=== PATIENT | female | born 1935 | race Caucasian/White ===

== ENCOUNTER 2017-03-15 06:34 | Emergency (ER) | payer OTHER ==
[~2017-03-15] VITALS: Ht 154.9 cm; Wt 75.4 kg
[~2017-03-15 06:34] MED LIST: ACID CONTROL150 MG PO; ATENOLOL50 MG PO; ATORVASTATIN CA80 MG PO; CALCIUM 500 +1 EAC5 PO; CALTRATE PLUS1 EACH PO; LOSARTAN POTASS50 MG PO; METOPROLOL TART50 MG PO; NORCO 5/3251 TABLET PO; OMEPRAZOLE20 M2 PO; OSTEO BI-FLEX1 EAC3 PO; XARELTO20 MG PO; ZYRTEC10 M3 PO
[2017-03-15 07:01] LABS: HEMATOCRIT 39.4 % (36.0-46.0); MCH 32.2 PG (29.0-34.0); MCHC 33.5 G/DL (30.0-36.0); MCV 96.1 FL (83-99); MEAN PLAT.VOLUME 10.7 uM^3 (9.5-12.4); PLATELET COUNT 167 K/uL (156-360); RBC DIS.WIDTH-CV 14.6 % (11.8-14.6); RBC DIS.WIDTH-SD 51.1 % (39-53); WHITE BLOOD COUNT 6.7 K/uL (4.1-10.2)
[2017-03-15 07:23] LABS: ANION GAP 9 MEQ/L (2-14); CHLORIDE 103 MEQ/L (99-109); POTASSIUM 3.4 MEQ/L (3.7-5.4); SAMPLE HEMOLYSIS CHECK 0; SAMPLE ICTERIC CHECK 0; SAMPLE LIPEMIA CHECK 0; SODIUM 138 MEQ/L (136-147)
[2017-03-15 07:29] LABS: ALKALINE PHOSPHATASE 88 IU/L (3-129); GFR ESTIMATE (CALCULATED) 51 mL/min/; GLUCOSE 134 mg/dL (70-99); UREA NITROGEN (BUN) 12 mg/dL (9-23)
[2017-03-15 07:39] LABS: LIPASE 22 U/L (1.0-51.0)
[2017-03-15 07:56] LABS: TROP-I INTERPRETATION NEGATIVE; TROPONIN-I 0.06 ng/mL (0.0-0.30)
[2017-03-15 08:13] LABS: ADD MIUA? YES; BILIRUBIN NEGATIVE; BLOOD SMALL; COLOR AMBER ((YELLOW)); GLUCOSE (STRIP) NEGATIVE; KETONES NEGATIVE; LEUKOCYTES LARGE; NITRITE NEGATIVE; PROTEIN (STRIP) 100; SPECIFIC GRAVITY 1.019 (1.000-1.030); UROBILINOGEN 0.2 MG/DL (0.2-1.0)
[2017-03-15 08:29] LABS: BACTERIA 1+ /HPF; EPITHELIAL CELLS 3+ /HPF; MUCUS 2+ /LPF; RED BLOOD CELLS 0-5 /HPF (0-5); UCUL ADDED? YES; WHITE BLOOD CELLS 15-20 /HPF (0-5)
[2017-03-15] MEDS ORDERED: CIPRO500 MG PO (08:54)
[2017-03-15 09:19] VITALS: BP 146/85
[2017-03-16] MEDS ORDERED: BENADRYL ALLERG25 MG PO (09:28)
== END 2017-03-15 09:23 | disposition home or self-care (01) ==
LOC: EME 06:34
PROVIDERS: Emergency Medicine
DX: N39.0 Urinary tract infection, site not specified (principal); I48.91 Unspecified atrial fibrillation; R06.02 Shortness of breath; R05 Cough; I10 Essential (primary) hypertension; E78.5 Hyperlipidemia, unspecified; Z79.01 Long term (current) use of anticoagulants
CPT/HCPCS: 70450; 71010; 80053; 81003; 83690; 83880; 84484; 85027; 87086 GA; 93005; 99281; 99284

== ENCOUNTER 2017-03-16 05:14 | Observation (INO) | payer OTHER ==
[~2017-03-16] VITALS: Ht 154.9 cm; Wt 75.3 kg
[~2017-03-16 05:14] MED LIST changes: +CIPRO500 MG PO
[2017-03-16 05:48] LABS: HEMATOCRIT 38.2 % (36.0-46.0); MCH 32.7 PG (29.0-34.0); MEAN PLAT.VOLUME 10.8 uM^3 (9.5-12.4); PLATELET COUNT 164 K/uL (156-360); RBC DIS.WIDTH-CV 14.8 % (11.8-14.6); RBC DIS.WIDTH-SD 51.1 % (39-53); RED BLOOD COUNT 3.98 M/uL (3.80-5.20); WHITE BLOOD COUNT 6.7 K/uL (4.1-10.2)
[2017-03-16 05:51] LABS: CHLORIDE 106 mEq/L (99-109); POTASSIUM 3.5 mEq/L (3.7-5.4); SODIUM 138 mEq/L (136-147)
[2017-03-16 05:53] LABS: GLUCOSE 126 mg/dL (70-99)
[2017-03-16 05:54] LABS: ANION GAP 9 MEQ/L (2-14)
[2017-03-16 05:56] LABS: GFR ESTIMATE (CALCULATED) 57 mL/min/
[2017-03-16 05:57] LABS: UREA NITROGEN (BUN) 15 mg/dL (9-23)
[2017-03-16 06:03] LABS: TROP-I INTERPRETATION NEGATIVE; TROPONIN-I 0.05 ng/mL (0.0-0.30)
[2017-03-16 08:23] LABS: ADD MIUA? YES; BILIRUBIN NEGATIVE; BLOOD NEGATIVE; COLOR YELLOW ((YELLOW)); GLUCOSE (STRIP) NEGATIVE; KETONES 5; LEUKOCYTES SMALL; NITRITE NEGATIVE; PROTEIN (STRIP) 30; SPECIFIC GRAVITY 1.021 (1.000-1.030); UROBILINOGEN 0.2 MG/DL (0.2-1.0)
[2017-03-16 08:34] LABS: BACTERIA RARE /HPF; EPITHELIAL CELLS 2+ /HPF; HYALINE CASTS 0-5 /LPF; MUCUS TRACE /LPF; RED BLOOD CELLS 0-5 /HPF (0-5); UCUL ADDED? NO; UNCLASSIFIED CASTS 0-5 /LPF; WHITE BLOOD CELLS 0-5 /HPF (0-5)
[2017-03-16] MEDS ORDERED: BENADRYL ALLERG25 MG PO (09:28)
[2017-03-16 11:14] VITALS: BP 134/70
[2017-03-16 12:02] LABS: TROP-I INTERPRETATION NEGATIVE; TROPONIN-I 0.06 ng/mL (0.0-0.30)
== END 2017-03-16 14:07 | disposition home or self-care (01) ==
LOC: EME 05:14 → EDOF 09:21 → ENRESERV 09:24 → 5WEST 11:01
PROVIDERS: Emergency Medicine; Nurse Practitioner Family
DX: R07.9 Chest pain, unspecified (principal); I48.91 Unspecified atrial fibrillation; K21.9 Gastro-esophageal reflux disease without esophagitis; I10 Essential (primary) hypertension; N39.0 Urinary tract infection, site not specified; F03.90 Unspecified dementia, unspecified severity, without behavioral disturbance, psychotic disturbance, mood disturbance, and anxiety; Z79.01 Long term (current) use of anticoagulants; E78.5 Hyperlipidemia, unspecified; Z90.49 Acquired absence of other specified parts of digestive tract; Z88.6 Allergy status to analgesic agent; Z88.8 Allergy status to other drugs, medicaments and biological substances; Z91.013 Allergy to seafood
CPT/HCPCS: 71020; 80048; 81003; 84484; 85027; 93005; 99281; 99285; G0378

== ENCOUNTER 2017-03-18 17:05 | Emergency (ER) | payer OTHER ==
[~2017-03-18] VITALS: Ht 154.9 cm; Wt 72.7 kg
[~2017-03-18 17:05] MED LIST changes: +BENADRYL ALLERG25 MG PO
[2017-03-18 17:42] VITALS: BP 109/88
== END 2017-03-18 20:18 | disposition left against medical advice (07) ==
LOC: EME 17:05
DX: R07.81 Pleurodynia (principal); M54.9 Dorsalgia, unspecified; R42 Dizziness and giddiness; Z53.21 Procedure and treatment not carried out due to patient leaving prior to being seen by health care provider
CPT/HCPCS: 71020; 80048; 84484; 85027; 93005

== ENCOUNTER 2017-03-19 08:12 | Emergency (ER) | payer OTHER ==
[~2017-03-19] VITALS: Ht 154.9 cm; Wt 70.4 kg
[2017-03-19 09:30] LABS: EOSINOPHIL (%) 1.2 % (0-5); EOSINOPHIL COUNT 0.1 K/uL (0-0.3); HEMATOCRIT 37.4 % (36.0-46.0); IMMATURE GRANULOCYTE (%) 0.3 % (0.0-0.7); INSTRUMENT ABS NEUTROPHIL CT 5.8 K/uL; LYMPHOCYTE COUNT 1.2 K/uL (1.0-2.8); MCH 32.5 PG (29.0-34.0); MCV 95.7 FL (83-99); MEAN PLAT.VOLUME 10.9 uM^3 (9.5-12.4); MONOCYTE (%) 5.3 % (3-12); MONOCYTE COUNT 0.4 K/uL (0-0.8); NEUTROPHIL (%) 77.1 % (45-76); NEUTROPHIL COUNT 5.8 K/uL (1.8-6.4); PLATELET COUNT 158 K/uL (156-360); RBC DIS.WIDTH-CV 15.3 % (11.8-14.6); RBC DIS.WIDTH-SD 52.7 % (39-53); RED BLOOD COUNT 3.91 M/uL (3.80-5.20); WHITE BLOOD COUNT 7.5 K/uL (4.1-10.2)
[2017-03-19 09:37] LABS: INTER. NORMALIZED RATIO 1.2; PROTHROMBIN TIME 13.2 SEC (10.2-12.9)
[2017-03-19 09:40] LABS: PTT 25.8 SEC (25-37)
[2017-03-19 09:45] LABS: CHLORIDE 103 mEq/L (99-109); POTASSIUM 3.3 mEq/L (3.7-5.4); SODIUM 135 mEq/L (136-147)
[2017-03-19 09:46] LABS: GLUCOSE 164 mg/dL (70-99)
[2017-03-19 09:48] LABS: ANION GAP 13 MEQ/L (2-14)
[2017-03-19 09:50] LABS: GFR ESTIMATE (CALCULATED) 23 mL/min/
[2017-03-19 09:51] LABS: UREA NITROGEN (BUN) 19 mg/dL (9-23)
[2017-03-19 09:53] LABS: TROP-I INTERPRETATION NEGATIVE; TROPONIN-I 0.08 ng/mL (0.0-0.30)
[2017-03-19 13:30] VITALS: BP 132/80
== END 2017-03-19 13:30 | disposition left against medical advice (07) ==
LOC: EME 08:12
PROVIDERS: Emergency Medicine
DX: I48.91 Unspecified atrial fibrillation (principal); E86.0 Dehydration; N19 Unspecified kidney failure; Z79.01 Long term (current) use of anticoagulants; D68.9 Coagulation defect, unspecified; Z90.49 Acquired absence of other specified parts of digestive tract; R42 Dizziness and giddiness; E78.5 Hyperlipidemia, unspecified; I10 Essential (primary) hypertension; F03.90 Unspecified dementia, unspecified severity, without behavioral disturbance, psychotic disturbance, mood disturbance, and anxiety; K21.9 Gastro-esophageal reflux disease without esophagitis; Z88.8 Allergy status to other drugs, medicaments and biological substances; Z88.6 Allergy status to analgesic agent; Z91.013 Allergy to seafood
CPT/HCPCS: 71010; 78582; 80048; 83880; 84484; 85025; 85379; 85610; 85730; 93005; 99281; 99285; A9539; A9540

== ENCOUNTER 2017-05-11 08:00 | Observation (INO) | payer OTHER ==
[~2017-05-11] VITALS: Ht 162.6 cm; Wt 70.5 kg
[2017-05-11 09:11] LABS: HEMATOCRIT 34.6 % (36.0-46.0); HEMOGLOBIN 11.7 G/DL (11.9-15.5); MCH 32.3 PG (29.0-34.0); MCHC 33.8 G/DL (30.0-36.0); MCV 95.6 FL (83-99); PLATELET COUNT 151 K/uL (156-360); RBC DIS.WIDTH-CV 14.7 % (11.8-14.6); RBC DIS.WIDTH-SD 52.1 % (39-53); RED BLOOD COUNT 3.62 M/uL (3.80-5.20); WHITE BLOOD COUNT 4.7 K/uL (4.1-10.2)
[2017-05-11 09:21] LABS: CHLORIDE 106 mEq/L (99-109); POTASSIUM 3.9 mEq/L (3.7-5.4); SODIUM 139 mEq/L (136-147)
[2017-05-11 09:23] LABS: GLUCOSE 112 mg/dL (70-99)
[2017-05-11 09:27] LABS: CREATININE 1.3 mg/dL (0.6-1.3); GFR ESTIMATE (CALCULATED) 42 mL/min/
[2017-05-11 09:28] LABS: UREA NITROGEN (BUN) 11 mg/dL (9-23)
[2017-05-11 09:32] LABS: TROP-I INTERPRETATION NEGATIVE; TROPONIN-I 0.07 ng/mL (0.0-0.30)
[2017-05-11 11:07] VITALS: BP 00/00
== END 2017-05-11 11:24 | disposition home or self-care (01) ==
LOC: EME 08:00 → EDOF 10:20 → ENRESERV 10:23 → CANRESERV 11:15 → EDOF 11:24
DX: R07.9 Chest pain, unspecified (principal); R06.09 Other forms of dyspnea; I51.7 Cardiomegaly; I48.91 Unspecified atrial fibrillation; D64.9 Anemia, unspecified; Z79.01 Long term (current) use of anticoagulants; E78.5 Hyperlipidemia, unspecified; K21.9 Gastro-esophageal reflux disease without esophagitis; I10 Essential (primary) hypertension; F03.90 Unspecified dementia, unspecified severity, without behavioral disturbance, psychotic disturbance, mood disturbance, and anxiety; Z88.6 Allergy status to analgesic agent; Z88.8 Allergy status to other drugs, medicaments and biological substances; Z91.013 Allergy to seafood
CPT/HCPCS: 71046; 80048; 84484; 85027; 93005; G0378

== ENCOUNTER 2017-05-13 05:22 | Emergency (ER) | payer OTHER ==
[~2017-05-13] VITALS: Ht 154.9 cm; Wt 69.5 kg
[2017-05-13 06:05] LABS: BASOPHIL (%) 0.6 % (0-1); EOSINOPHIL (%) 5.7 % (0-5); EOSINOPHIL COUNT 0.3 K/uL (0-0.3); LYMPHOCYTE (%) 37.8 % (15-42); LYMPHOCYTE COUNT 1.8 K/uL (1.0-2.8); MCH 31.9 PG (29.0-34.0); MCHC 33.3 G/DL (30.0-36.0); MCV 95.7 FL (83-99); MONOCYTE (%) 4.7 % (3-12); MONOCYTE COUNT 0.2 K/uL (0-0.8); NEUTROPHIL (%) 51.2 % (45-76); NEUTROPHIL COUNT 2.5 K/uL (1.8-6.4); PLATELET COUNT 157 K/uL (156-360); RBC DIS.WIDTH-SD 52.3 % (39-53); RED BLOOD COUNT 3.76 M/uL (3.80-5.20); WHITE BLOOD COUNT 4.9 K/uL (4.1-10.2)
[2017-05-13 06:20] LABS: CHLORIDE 105 mEq/L (99-109); POTASSIUM 3.6 mEq/L (3.7-5.4); SODIUM 138 mEq/L (136-147)
[2017-05-13 06:21] LABS: GLUCOSE 152 mg/dL (70-99)
[2017-05-13 06:25] LABS: CREATININE 1.4 mg/dL (0.6-1.3); GFR ESTIMATE (CALCULATED) 38 mL/min/; TROP-I INTERPRETATION NEGATIVE; TROPONIN-I 0.07 ng/mL (0.0-0.30)
[2017-05-13 06:26] LABS: UREA NITROGEN (BUN) 11 mg/dL (9-23)
[2017-05-13] MEDS ORDERED: METOPROLOL TART25 MG PO (09:26)
[2017-05-13] MEDS ORDERED: LASIX40 MG PO (09:26)
[2017-05-13 09:41] VITALS: BP 136/97
== END 2017-05-13 09:43 | disposition left against medical advice (07) ==
LOC: EME 05:22
PROVIDERS: Emergency Medicine
DX: I50.9 Heart failure, unspecified (principal); I11.0 Hypertensive heart disease with heart failure; E78.5 Hyperlipidemia, unspecified; F03.90 Unspecified dementia, unspecified severity, without behavioral disturbance, psychotic disturbance, mood disturbance, and anxiety; I48.91 Unspecified atrial fibrillation; K21.9 Gastro-esophageal reflux disease without esophagitis; Z88.8 Allergy status to other drugs, medicaments and biological substances; Z88.6 Allergy status to analgesic agent
CPT/HCPCS: 71045; 71250; 80048; 83880; 84484; 85025; 85379; 93005; 99281; 99285; J1940

== ENCOUNTER 2017-06-23 08:17 | Inpatient (IN) | payer OTHER ==
[~2017-06-23] VITALS: Ht 154.9 cm; Wt 65.5 kg
[~2017-06-23 08:17] MED LIST changes: +LASIX40 MG PO; +METOPROLOL TART25 MG PO
[2017-06-23 08:52] LABS: BASOPHIL (%) 0.4 % (0-1); EOSINOPHIL (%) 0.8 % (0-5); HEMATOCRIT 37.7 % (36.0-46.0); HEMOGLOBIN 12.8 G/DL (11.9-15.5); IMMATURE GRANULOCYTE (%) 0.4 % (0.0-0.7); LYMPHOCYTE COUNT 1.4 K/uL (1.0-2.8); MCH 33.2 PG (29.0-34.0); MCV 97.9 FL (83-99); MONOCYTE (%) 4.7 % (3-12); MONOCYTE COUNT 0.2 K/uL (0-0.8); NEUTROPHIL (%) 66.7 % (45-76); NEUTROPHIL COUNT 3.4 K/uL (1.8-6.4); PLATELET COUNT 83 K/uL (156-360); RBC DIS.WIDTH-CV 17.3 % (11.8-14.6); RBC DIS.WIDTH-SD 61.7 % (39-53); RED BLOOD COUNT 3.85 M/uL (3.80-5.20); WHITE BLOOD COUNT 5.1 K/uL (4.1-10.2)
[2017-06-23 08:58] LABS: INTER. NORMALIZED RATIO 1.5
[2017-06-23 09:01] LABS: CHLORIDE 105 mEq/L (99-109); POTASSIUM 3.8 mEq/L (3.7-5.4); PTT 26.6 SEC (25-37); SODIUM 137 mEq/L (136-147)
[2017-06-23 09:03] LABS: GLUCOSE 129 mg/dL (70-99)
[2017-06-23 09:07] LABS: CREATININE 1.6 mg/dL (0.6-1.3); GFR ESTIMATE (CALCULATED) 33 mL/min/
[2017-06-23 09:08] LABS: UREA NITROGEN (BUN) 20 mg/dL (9-23)
[2017-06-23 09:13] LABS: TROP-I INTERPRETATION NEGATIVE; TROPONIN-I 0.21 ng/mL (0.0-0.30)
[2017-06-23] MEDS ORDERED: ASPIR 8181 M1 PO (09:58)
[2017-06-23 11:14] LABS: MAGNESIUM 1.8 mg/dL (1.3-2.7)
[2017-06-23 13:10] VITALS: BP 142/93
[2017-06-23 15:31] VITALS: BP 138/81
[2017-06-23 15:33] LABS: TROP-I INTERPRETATION NEGATIVE; TROPONIN-I 0.23 ng/mL (0.0-0.30)
[2017-06-23 19:20] VITALS: BP 152/81
== END 2017-06-23 20:46 | disposition left against medical advice (07) | DRG 308 ==
LOC: EME 08:17 → EDOF 10:08 → ENRESERV 10:10 → 4EAST 12:57
PROVIDERS: Emergency Medicine; Hospitalist
DX: I48.2 Chronic atrial fibrillation (principal); I11.0 Hypertensive heart disease with heart failure; I50.23 Acute on chronic systolic (congestive) heart failure; I08.1 Rheumatic disorders of both mitral and tricuspid valves; I27.20 Pulmonary hypertension, unspecified; I25.10 Atherosclerotic heart disease of native coronary artery without angina pectoris; E78.5 Hyperlipidemia, unspecified; F03.90 Unspecified dementia, unspecified severity, without behavioral disturbance, psychotic disturbance, mood disturbance, and anxiety; Q24.5 Malformation of coronary vessels; Z79.82 Long term (current) use of aspirin
CPT/HCPCS: 71045; 80048; 83735; 83880; 84484; 85025; 85610; 85730; 93005; 93306; 99281; 99285; J1940

== ENCOUNTER 2017-07-01 17:05 | Emergency (ER) | payer OTHER ==
[~2017-07-01] VITALS: Ht 162.6 cm; Wt 71.0 kg
[~2017-07-01 17:05] MED LIST changes: +ASPIR 8181 M1 PO
[2017-07-01 18:24] LABS: ALBUMIN 1.5 g/dL (3.2-4.8); BASOPHIL (%) 0.1 % (0-1); EOSINOPHIL (%) 0.1 % (0-5); LYMPHOCYTE COUNT 0.7 K/uL (1.0-2.8); MCH 33.2 PG (29.0-34.0); MCHC 33.3 G/DL (30.0-36.0); MCV 99.7 FL (83-99); MONOCYTE (%) 2.8 % (3-12); MONOCYTE COUNT 0.2 K/uL (0-0.8); NEUTROPHIL COUNT 6.9 K/uL (1.8-6.4); NRBC (%) 1.3 /100 WBC (0-0); RBC DIS.WIDTH-CV 17.3 % (11.8-14.6); RBC DIS.WIDTH-SD 61.2 % (39-53); WHITE BLOOD COUNT 7.9 K/uL (4.1-10.2)
[2017-07-01 18:25] LABS: CHLORIDE 102 mEq/L (99-109); POTASSIUM 4.6 mEq/L (3.7-5.4); SODIUM 132 mEq/L (136-147)
[2017-07-01 18:27] LABS: GLUCOSE 186 mg/dL (70-99); TOTAL PROTEIN 2.7 g/dL (6.4-8.3)
[2017-07-01 18:29] LABS: TOTAL BILIRUBIN 2.4 mg/dL (0.0-1.0)
[2017-07-01 18:30] LABS: ALKALINE PHOSPHATASE 90 IU/L (3-129)
[2017-07-01 18:31] LABS: CREATININE 2.8 mg/dL (0.6-1.3); GFR ESTIMATE (CALCULATED) 17 mL/min/
[2017-07-01 18:32] LABS: UREA NITROGEN (BUN) 52 mg/dL (9-23)
[2017-07-01 18:33] LABS: ALT (GPT) 883 IU/L (3-49)
[2017-07-01 18:35] LABS: TROP-I INTERPRETATION POSITIVE
[2017-07-01 18:39] LABS: AST (GOT) 2140 IU/L (2-34)
[2017-07-01 18:40] LABS: TROPONIN-I 7.08 ng/mL (0.0-0.30)
[2017-07-01 19:38] LABS: RED BLOOD COUNT 3.01 M/uL (3.80-5.20)
[2017-07-01 19:39] LABS: PLATELET COUNT 9 K/uL (156-360)
[2017-07-01 21:51] VITALS: BP 00/0
== END 2017-07-01 21:52 ==
LOC: EME 17:05
PROVIDERS: Emergency Medicine
DX: I21.9 Acute myocardial infarction, unspecified (principal); R00.1 Bradycardia, unspecified; D69.6 Thrombocytopenia, unspecified; E87.2 Acidosis; E16.2 Hypoglycemia, unspecified; R57.9 Shock, unspecified; K21.9 Gastro-esophageal reflux disease without esophagitis; I10 Essential (primary) hypertension; F03.90 Unspecified dementia, unspecified severity, without behavioral disturbance, psychotic disturbance, mood disturbance, and anxiety; E78.5 Hyperlipidemia, unspecified; Z88.8 Allergy status to other drugs, medicaments and biological substances; Z88.6 Allergy status to analgesic agent; I48.91 Unspecified atrial fibrillation; Z79.01 Long term (current) use of anticoagulants
CPT/HCPCS: 36600; 71045; 80053; 81003; 82803; 82948; 83605; 84484; 85025; 85610; 85610 GA; 85730; 85730 GA; 86850; 86900; 86901; 87040; 92950; 93005; 94002; 99281; 99285; J0171; J2543